=== PATIENT | female | born 1985 | race Caucasian/White ===

== ENCOUNTER 2017-03-11 05:50 | Outpatient (CLI) | payer MEDICAID ==
[~2017-03-11] VITALS: Ht 157.5 cm; Wt 77.2 kg
[~2017-03-11 05:50] MED LIST: AMOX-358 PO; BENZ-13 PO; NITR-65 PO; ONDA-42 SL; PHEN200T27 PO
[2017-03-11] MEDS ORDERED: SUCR1TAB36 PO (12:23)
== END 2017-03-11 12:23 ==
LOC: PREOP 05:50
PROVIDERS: ATTEND Surgery
DX: Z01.818 Encounter for other preprocedural examination (principal); R11.0 Nausea

== ENCOUNTER → 2017-03-12 | Outpatient (CLI) | payer MEDICAID ==
[~2017-03-12] MED LIST changes: +SUCR1TAB36 PO
--- NOTE | 2017-03-12 12:28 | Diagnostic Imaging Report ---
PROCEDURE: US Gallbladder. TECHNIQUE: Multiple real-time grayscale images were obtained over the right upper quadrant in various projections. INDICATION: Nausea. FINDINGS: There are no prior studies available for comparison. There is no evidence for cholelithiasis or acute cholecystitis and the common bile duct is not dilated. The liver does not appear to be enlarged. There is no focal mass involving the liver and the biliary tree is not abnormally distended. The pancreas and right kidney are within normal limits. The proximal aorta and inferior vena cava are not well visualized. There is no mass or free fluid collection noted. IMPRESSION: 1. There is no evidence for an acute abnormality of the right upper quadrant. 2. If clinical concern regarding an underlying abnormality of the gallbladder persists and further imaging is desired, then a nuclear medicine hepatobiliary scan will be recommended. Dictated by: Dictated on workstation # [id number]
== END ==
LOC: RAD 08:36
PROVIDERS: ATTEND Surgery
DX: R11.0 Nausea (principal)
CPT/HCPCS: 76705

== ENCOUNTER 2017-03-17 12:17 | Day surgery (SDC) | payer MEDICAID ==
[~2017-03-17] VITALS: Ht 157.5 cm; Wt 77.2 kg
[2017-03-17] MEDS ORDERED: LACTATED RINGERS 1,000 ML IV ONE (12:34)
[2017-03-17 13:05] VITALS: BP 137/83
--- NOTE | 2017-03-17 13:54 | Progress Note-Pre Operative ---
Pre-Operative Progress Note H&P Reviewed The H&P was reviewed, patient examined and no changes noted. Time Seen by Provider: 13:50 Date H&P Reviewed: Mar 17, 2017 Time H&P Reviewed: 13:51 Pre-Operative Diagnosis: Gastritis ДМИТРИЙ BLANCO DO Mar 17, 2017 13:54
[2017-03-17] MEDS ORDERED: MIDAZOLAM 5 MG/5 ML (VERSED) VIAL ONE (14:24)
[2017-03-17] MEDS ORDERED: proPOfol 200 MG/20 ML (DIPRIVAN) VIAL IV ONE (14:24)
[2017-03-17] MEDS ORDERED: HURRICAINE EXT TUBE (BENZOCAINE) ONE (14:29)
--- NOTE | 2017-03-17 14:49 | Progress Note-Post Operative ---
Post-Operative Progess Note Surgeon (s)/Tour Production Supervisor (s) Surgeon ДМИТРИЙ BLANCO DO Tour Production Supervisor: none Pre-Operative Diagnosis Gastritis Post-Operative Diagnosis gastritis, duodenitis Procedure & Operative Findings Date of Procedure 03/17/17 Procedure Performed/Findings EGD with bx of duodenum and antrum Anesthesia Type IV sedation Estimated Blood Loss Estimated blood loss (mL): scant Specimens/Packing Specimens Removed bx from duodenum bx from antrum ДМИТРИЙ BLANCO DO Mar 17, 2017 14:49
--- NOTE | 2017-03-17 14:51 | Endoscopy Discharge Instruct ---
Endo Procedure/Findings Findings 1.: Gastritis 2.: Other Findings (Duodenitis) Discharge Instructions - Activity: You might feel a little sleepy until tomorrow. This is due to the medicine you received to relax you. Until tomorrow, you should: NOT drive a car, operate machinery or power tools. NOT drink any alcoholic beverages. NOT make any important decisions or sign importortant papers. Do not return to work until tomorrow, unless otherwise instructed. Resume previous activities tomorrow. Diet: Start by taking liquids. If you tolerate liquids, advance to solid food. Make appointment for one week, Notify Physician - If you experience excessive bleeding, unusual abdominal pain, fever, or chest pain, contact your doctor immediately. [phone] Follow-Up: - I have received and understand the above instructions and will call my doctor if I have any further questions. Patient Signature Date Nurse Signature Other (Relationship) ДМИТРИЙ BLANCO DO Mar 17, 2017 14:51
[2017-03-17 15:00] VITALS: BP 124/80
[2017-03-17 15:25] VITALS: BP 126/84
[2017-03-17 15:31] VITALS: BP 126/84
--- NOTE | 2017-03-18 03:33 | OPERATIVE REPORT ---
DATE OF SERVICE: PREOPERATIVE DIAGNOSIS: Gastritis. POSTOPERATIVE DIAGNOSES: 1. Gastritis. 2. Duodenitis. PROCEDURE: EGD with biopsy. SURGEON: Cortez Pineda DO LOUVER MORTISER OPERATOR: None. SPECIMEN: 1. Biopsy from antrum. 2. Biopsy from duodenum. BLOOD LOSS: Scant. FLUIDS: Per anesthesia. POSTOPERATIVE CONDITION: Stable. INDICATION FOR PROCEDURE: The patient is a 31-year-old female who has been having abdominal pain, heartburn and needed a workup. The patient has been on Carafate that has not been working. FINDINGS: The patient had some redness and erythema in the stomach, actually almost the whole stomach and she had some redness and erythema in the duodenum. Biopsies were taken. Normal GE junction. PROCEDURE NOTE: After informed consent was obtained, the patient was brought to the endoscopy suite, placed in the bed in the left lateral decubitus position. Administered IV sedation, MARKETING DIRECTOR ASSISTED LIVING monitored her vitals. The EGD scope was inserted down the mouth, down the esophagus and into the stomach. Looked at the antrum, it was a little bit of red, took a picture of this and then pushed into the first portion of the duodenum. It also had some erythema and redness. Pushed past the first portion into the second and third portion. This area looked back to normal. Elected to do a biopsy in the first portion of the duodenum and did another biopsy in the antrum. Retroflex did not see any hiatal hernia and then so withdrew the scope, took a picture of the GE junction; this looked normal. I removed the scope. The patient tolerated the procedure and she was transferred to the recovery room in stable condition. Job ID: [id number] DocumentID: [id number] Dictated Date: 03/17/2017 16:49:54 Loan Officer Assistant Date: 03/18/2017 03:17:24 Dictated By: CORTEZ PINEDA DO
== END 2017-03-17 15:30 | disposition home or self-care (01) ==
LOC: ENDO 12:17
PROVIDERS: ATTEND Surgery
DX: K29.50 Unspecified chronic gastritis without bleeding (principal); K29.80 Duodenitis without bleeding; F17.210 Nicotine dependence, cigarettes, uncomplicated; E66.9 Obesity, unspecified; Z68.31 Body mass index [BMI] 31.0-31.9, adult
CPT/HCPCS: 84703

== ENCOUNTER → 2017-10-30 | Outpatient (CLI) | payer MEDICAID ==
--- NOTE | 2017-10-30 12:39 | Diagnostic Imaging Report ---
INDICATION: Severe pelvic pain. TECHNIQUE: Transabdominal and transvaginal pelvic sonography was performed. FINDINGS: The uterus measures 6.4 x 4.0 x 3.2 cm. The endometrium is thin at 2 mm. No myometrial mass is detected. The right ovary was not visualized. The left ovary was poorly visualized but measures approximately 1.9 x 2.6 cm. There is blood flow present. No adnexal mass or free fluid is seen. IMPRESSION: Essentially unremarkable transabdominal and transvaginal pelvic ultrasound apart from a nonvisualized right ovary. Dictated by: Dictated on workstation # [id number]
== END ==
LOC: RAD 11:00
PROVIDERS: ATTEND Obstetrics & Gynecology
DX: N94.19 Other specified dyspareunia (principal)
CPT/HCPCS: 76830; 76856

== ENCOUNTER → 2017-12-12 | Outpatient (CLI) | payer MEDICAID ==
[~2017-12-12] MED LIST changes: +CATHETER FLUSH 10 ML SYR IV PRN
--- NOTE | 2017-12-12 16:23 | Diagnostic Imaging Report ---
INDICATION: Diarrhea and abdominal pain. EXAMINATION: Patient was administered 5.3 mCi technetium 99m Choletec and imaging over the abdomen was performed. Patient was also given one can of Ensure to drink and the gallbladder ejection fraction was calculated. FINDINGS: There is homogeneous uptake of activity by the liver with prompt excretion of activity into the gallbladder and common duct. There is normal passage of activity into the small bowel. Gallbladder ejection fraction is calculated at 59%. IMPRESSION: Normal HIDA scan and gallbladder ejection fraction. Dictated on workstation # [id number]
== END ==
LOC: CARD 11:57
PROVIDERS: ATTEND Surgery
DX: R19.7 Diarrhea, unspecified (principal); R10.9 Unspecified abdominal pain
CPT/HCPCS: 78227

== ENCOUNTER → 2017-12-24 | Outpatient (CLI) | payer MEDICAID ==
[~2017-12-24] MED LIST changes: -CATHETER FLUSH 10 ML SYR IV PRN
== END ==
LOC: PREOP 05:36
PROVIDERS: ATTEND Surgery
DX: Z01.818 Encounter for other preprocedural examination (principal); R19.7 Diarrhea, unspecified

== ENCOUNTER → 2019-02-16 | Outpatient (CLI) | payer MEDICAID ==
[~2019-02-16] MED LIST changes: -BENZ-13 PO; +BENZ100C18 PO
--- NOTE | 2019-02-16 14:00 | Diagnostic Imaging Report ---
INDICATION: Diabetes. High-risk medication use COMPARISON: None FINDINGS: AP Spine L1-L4: [BMD (g/cm2): 1.281] [T-Score: 0.7] [Z-Score: 0.2] [BMD Previous: NA] [BMD % Change: NA] LT Hip Neck: [BMD (g/cm2): 0.936] [T-Score: -0.7] [Z-Score: -0.8] LT Hip Total: [BMD (g/cm2):0.997] [T-Score:-0.1] [Z-Score: -0.3] [BMD Previous: NA] [BMD % Change: NA] RT Hip Neck: [BMD (g/cm2):0.980] [T-Score:-0.4] [Z-Score:-0.5] RT Hip Total: [BMD (g/cm2):0.972] [T-score:-0.3] [Z-Score:-0.5] [BMD Previous:NA] [BMD % Change:NA] *Indicates significant change from prior examination based on 95% confidence level. World Health Organization criteria for BMD interpretation classify patients as Normal (T-score at or above -1.0), Osteopenic (T-score between -1.0 and -2.5) or Osteoporotic (T-score at or below -2.5). LIMITATIONS AND MODIFICATION: None. FRACTURE RISK (FRAX SCORE): The ten year probability of (%): Major Osteoporotic Fracture: [NA] Hip Fracture: [NA] IMPRESSION: 1. Normal bone mineral density. 2. Baseline examination. 3. See below National Osteoporosis Foundation guidelines on when to potentially initiate pharmacologic therapy. Based on the National Osteoporosis Foundation Guidelines, pharmacologic treatment should be initiated in any of the following, unless clinical conditions suggest otherwise: * Any patient with prior fragility fracture of the hip or vertebrae. A spine fracture indicates 5X risk for subsequent spine fracture and 2X risk for subsequent hip fracture. * Osteoporosis (T-score <-2.5). * Postmenopausal women and men age 50 and older with low bone mass/osteopenia (T-score between -1.0 and -2.5) by DXA and 10-year major osteoporotic fracture greater than 20% or a 10-year probability of hip fracture greater than 3%. These fracture risks are supplied above in the FRAX score, if applicable. * Clinician judgement and/or patient preferences may indicate treatment for people with 10-year fracture probabilities above or below these levels. Dictated by: Dictated on workstation # [id number]
== END ==
LOC: RAD 08:08
PROVIDERS: ATTEND Obstetrics & Gynecology
DX: E11.9 Type 2 diabetes mellitus without complications (principal); Z91.89 Other specified personal risk factors, not elsewhere classified; Z79.899 Other long term (current) drug therapy
CPT/HCPCS: 77080

== ENCOUNTER 2019-08-11 09:05 | Outpatient (CLI) | payer MEDICAID ==
[~2019-08-11] VITALS: Ht 160 cm; Wt 75.6 kg
[2019-08-11] MEDS ORDERED: ELAG150T PO (09:27)
[2019-08-11] MEDS ORDERED: GABA-486 PO (09:27)
[2019-08-11] MEDS ORDERED: SPIR25TA5 PO (09:27)
[2019-08-11] MEDS ORDERED: GLIM1TAB PO (09:27)
[2019-08-11] MEDS ORDERED: TOPI50TA37 PO (09:27)
[2019-08-11 10:37] LABS: BASOPHILS % (AUTO) 0 % (0-10); EOSINOPHILS # (AUTO) 0.1 10^3/uL (0.0-0.3); EOSINOPHILS % (AUTO) 1 % (0-10); HEMATOCRIT 41 % (35-52); HEMOGLOBIN 13.8 G/DL (11.5-16.0); LYMPHOCYTES # (AUTO) 1.8 X 10^3 (1.0-4.0); LYMPHOCYTES % (AUTO) 31 % (12-44); MEAN CORPUSCULAR HEMOGLOBIN 29 PG (25-34); MEAN CORPUSCULAR HGB CONC 33 G/DL (32-36); MEAN CORPUSCULAR VOLUME 85 FL (80-99); MEAN PLATELET VOLUME 9.6 FL (7.4-10.4); MONOCYTES # (AUTO) 0.5 X 10^3 (0.0-1.0); MONOCYTES % (AUTO) 8 % (0-12); NEUTROPHILS # (AUTO) 3.5 X 10^3 (1.8-7.8); NEUTROPHILS % (AUTO) 60 % (42-75); PLATELET COUNT 251 10^3/uL (130-400); RED CELL DISTRIBUTION WIDTH 12.4 % (10.0-14.5); WHITE BLOOD COUNT 5.8 10^3/uL (4.3-11.0)
== END 2019-08-11 13:56 | disposition home or self-care (01) ==
LOC: PREOP 09:05
PROVIDERS: ATTEND Obstetrics & Gynecology
DX: G89.29 Other chronic pain (principal); N93.9 Abnormal uterine and vaginal bleeding, unspecified; R10.2 Pelvic and perineal pain
CPT/HCPCS: 36415; 85025; 86850; 86900; 86901; 87081

== ENCOUNTER → 2020-09-08 | Outpatient (CLI) | payer MEDICAID ==
[~2020-09-08] MED LIST changes: +DOCU100C37 PO; +ELAG150T PO; +GABA-486 PO; +GLIM1TAB4 PO; +HYDR-34 PO; +IBUP-844 PO; +SIME80TA16 PO; +SPIR25TA5 PO; +TOPI50TA37 PO
--- NOTE | 2020-09-08 10:00 | Diagnostic Imaging Report ---
INDICATION: Nausea. Gallbladder sonography performed in the routine fashion and compared with 03/12/2017. FINDINGS: The liver shows normal echogenicity with no focal lesions. Gallbladder appears unremarkable with no stones or wall thickening. Portal vein is patent with hepatopetal flow. Common duct measured 5 mm. Pancreas is unremarkable to the extent seen. Visualized portions of the aorta and IVC are normal. Right kidney measured 9 cm in length and show no hydronephrosis. Sonographic Lundberg's sign was negative. There is no ascites. IMPRESSION: Negative gallbladder sonography, without change compared to the prior study. Dictated by: Dictated on workstation # [id number]
== END ==
LOC: RAD 08:37
PROVIDERS: ATTEND Nurse Practitioner Community Health
DX: R11.0 Nausea (principal)
CPT/HCPCS: 76705

== ENCOUNTER → 2020-10-02 | Outpatient (CLI) | payer MEDICAID ==
[~2020-10-02] MED LIST changes: +CATHETER FLUSH 10 ML SYR IV PRN
--- NOTE | 2020-10-02 11:32 | Diagnostic Imaging Report ---
INDICATION: Right upper quadrant pain. TECHNIQUE: Acquisitions were acquired of the abdomen after administration of 5.41 mCi of technetium 99m Choletec. Ejection fraction was calculated after patient drank a can of Ensure. FINDINGS: There is homogeneous uptake of isotope throughout the liver. Significant accumulation within the gallbladder by 60 minutes. Free flow of activity in the small bowel. Ejection fraction 64% IMPRESSION: Normal hepatobiliary scan and ejection fraction. Dictated by: Dictated on workstation # [id number]
== END ==
LOC: CARD 10:00
PROVIDERS: ATTEND Nurse Practitioner Community Health
DX: K81.9 Cholecystitis, unspecified (principal)
CPT/HCPCS: 78227; A9537

== ENCOUNTER → 2021-07-27 | Outpatient (CLI) | payer MEDICAID ==
[~2021-07-27] MED LIST changes: -CATHETER FLUSH 10 ML SYR IV PRN
--- NOTE | 2021-07-27 17:46 | Diagnostic Imaging Report ---
INDICATION: Bilateral breast pain. EXAMINATION: 2D and 3D bilateral diagnostic mammography was performed with CAD. The current study was also evaluated with a Computer Aided Detection (CAD) system. FINDINGS: Both breasts are heterogeneously dense, limiting the sensitivity of mammography. No mass or malignant-appearing microcalcifications are seen. Axillae are unremarkable. IMPRESSION: No mammographic features suspicious for malignancy are identified. Even so, directed sonographic interrogation of the areas of pain in both breasts is recommended and will be performed today. ACR BI-RADS Category 0: Incomplete. (Needs additional imaging evaluation). Result letter will be mailed to the patient. Note: At least 10% of breast cancer is not imaged by mammography. Dictated by: Dictated on workstation # [id number]
--- NOTE | 2021-07-27 17:49 | Diagnostic Imaging Report ---
INDICATION: Bilateral breast pain. COMPARISON: Correlation is made with diagnostic mammogram from earlier the same day. EXAMINATION: Sonographic interrogation of the areas of pain in the outer portions of both breasts was performed. FINDINGS: No sonographic abnormality is identified. No solid or cystic mass is detected. IMPRESSION: No sonographic abnormality is identified. ACR BI-RADS Category 1: Negative. Result letter will be mailed to the patient. Note: At least 10% of breast cancer is not imaged by mammography. Dictated by: Dictated on workstation # [id number]
== END ==
LOC: RAD 12:45
PROVIDERS: ATTEND Obstetrics & Gynecology
DX: N64.4 Mastodynia (principal)
CPT/HCPCS: 76642; 77066; G0279; 77062

== ENCOUNTER → 2021-12-17 | Outpatient (CLI) | payer MEDICAID ==
--- NOTE | 2021-12-17 14:11 | Diagnostic Imaging Report ---
PROCEDURE: US Thyroid. TECHNIQUE: Multiple real-time grayscale images were obtained of the thyroid in various projections. INDICATION: Thyroid nodule. COMPARISON: None available FINDINGS: The right lobe of thyroid gland measures 5.4 x 1.6 x 1.2 cm. The right thyroid lobe demonstrates a homogeneous echotexture without discrete nodule. The left lobe of thyroid gland measures 4.6 x 1.4 x 0.8 cm. An ovoid circumscribed hypoechoic 0.3 x 0.4 cm nodule is present within the inferior pole of the left thyroid lobe. It is unclear whether this is cystic or solid. No additional left thyroid nodules. Isthmus is unremarkable. IMPRESSION: 0.4 cm Ti RADS 2 nodule within the left thyroid lobe, for which no further follow-up is necessary unless clinically indicated otherwise. Dictated by: Dictated on workstation # [id number]
--- NOTE | 2021-12-17 15:10 | Diagnostic Imaging Report ---
PROCEDURE: Pelvic comp/transvaginal sonogram. TECHNIQUE: Complete transabdominal and transvaginal pelvic ultrasound was performed. In addition, limited pelvic Doppler was performed. INDICATION: Dyspareunia. FINDINGS: Uterus is surgically absent. Right ovary is not visualized and may be surgically absent as well. Left ovary measures 2.9 x 1.6 x 2.2 cm. Left ovary does contain small follicles. There is blood flow to left ovary. No adnexal mass or free fluid is detected. IMPRESSION: Status post hysterectomy and right oophorectomy. The left ovary is unremarkable. No acute feature is detected. Dictated by: Dictated on workstation # [id number]
== END ==
LOC: RAD 12:30
PROVIDERS: ATTEND Obstetrics & Gynecology
DX: N94.12 Deep dyspareunia (principal); E04.1 Nontoxic single thyroid nodule
CPT/HCPCS: 76536; 76830; 76856

== ENCOUNTER → 2023-02-12 | Outpatient (CLI) | payer MEDICAID ==
--- NOTE | 2023-02-12 14:25 | Diagnostic Imaging Report ---
PROCEDURE: Pelvic comp/transvaginal sonogram. TECHNIQUE: Complete transabdominal and transvaginal pelvic ultrasound was performed. In addition, limited pelvic Doppler was performed. INDICATION: Right lower quadrant pain. Patient status post complete hysterectomy in 2019. Uterus is surgically absent. Right ovary is not visualized and may be surgically absent as well. Left ovary measures 2.5 x 1.3 x 1.8 cm. There is blood flow to the left ovary. No adnexal mass or free fluid is detected. IMPRESSION: Status post hysterectomy with nonvisualized right ovary which may also be surgically absent. The study is otherwise unremarkable. Dictated by: Dictated on workstation # [id number]
== END ==
LOC: RAD 12:30
PROVIDERS: ATTEND Obstetrics & Gynecology
DX: R10.31 Right lower quadrant pain (principal); Z90.710 Acquired absence of both cervix and uterus
CPT/HCPCS: 76830; 76856